=== PATIENT | male | born 1975 | race African-American/Black ===

== ENCOUNTER 2018-12-16 14:27 | Emergency (ER) | payer OTHER ==
[2018-12-16 14:32] VITALS: BP 134/85
[2018-12-16] MEDS ORDERED: TETRACAINE HCL 0.5% OPH SOLN 4 ML OD ONE (14:55)
--- NOTE | 2018-12-16 14:57 | ER Document Report ---
ED Medical Screen (RME) - General Chief Complaint: Foreign Body in Eye Stated Complaint: FOREIGN OJECT IN EYE Time Seen by Provider: 12/16/18 14:52 Mode of Arrival: Ambulatory Information source: Patient TRAVEL OUTSIDE OF THE [place] IN LAST 30 DAYS: No - HPI Patient complains to provider of: left eye injury Notes: 12/16/18 14:56 Patient here with complaints of foreign body in the left eye. The patient works as a air conditioning mechanic industrial. He states he was changing the start her on a car when did fill off the frame into his left eye. He does wear contacts. He was not able to get the contact out of his left eye. Complains of pain, watering, blurred vision from the left eye. No other injury or complaints. Exam No distress, nontoxic-appearing. Left eye with significant injection. Debris noted within the left eye. Photophobia present. No surrounding erythema. Plan Patient was instructed to remove his contact. Visual acuity, tetracaine and eye exam has been ordered. Patient will be seen and evaluated by provider in the back. He may require eye irrigation. An initial examination was made on the patient as part of the triage process, and it was determined a more comprehensive evaluation was necessary. Initial labs were ordered and patient was transferred to another provider in the ED who assumed care and finished evaluation and plan. - Related Data Allergies/Adverse Reactions: Penicillins Allergy (Verified 12/16/18 14:28) tomato Allergy (Verified 12/16/18 14:28) Past Medical History - Social History Chew tobacco use (# tins/day): No Frequency of alcohol use: None Drug Abuse: None Endocrine Medical History: Reports: Hx Diabetes Mellitus Type 2 Renal/ Medical History: Denies: Hx Peritoneal Dialysis Physical Exam - Vital signs Vitals: Temp Pulse Resp BP Pulse Ox 97.8 F 77 16 134/85 H 98 12/16/18 14:30 12/16/18 14:30 12/16/18 14:30 12/16/18 14:30 12/16/18 14:30 Course - Vital Signs Vital signs: Temp Pulse Resp BP Pulse Ox 97.8 F 77 16 134/85 H 98 12/16/18 14:30 12/16/18 14:30 12/16/18 14:30 12/16/18 14:30 12/16/18 14:30
[2018-12-16] MEDS ORDERED: ERYTHROMYCIN 0.5% OPH OINT 1 GM UNIT DOSE OS ONE (16:38)
--- NOTE | 2018-12-16 16:43 | ER Document Report ---
ED Foreign Body - General Chief Complaint: Foreign Body in Eye Stated Complaint: FOREIGN OJECT IN EYE Time Seen by Provider: 12/16/18 14:52 Mode of Arrival: Ambulatory TRAVEL OUTSIDE OF THE [place] IN LAST 30 DAYS: No - HPI Notes: Patient is a 43-year-old male that presents to the emergency department for chief complaint of left eye foreign body. Patient states just prior to arrival he was underneath a car and had direct fall down hitting his eye. He states he has some sharp pain in the medial part of his eye. He is currently wearing contact lenses and has been unable to get his left contact lens out. He states that it is a scratchy sharp pain. He reports increased tearing in the left eye which is making his vision seem blurry. 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 Past Medical History: Diabetes Past Surgical History: Negative Social History: Reviewed in chart Family History: Reviewed and noncontributory for presenting illness Allergies: Reviewed, see documented allergy list. REVIEW OF SYSTEMS: CONSTITUTIONAL : No fever No chills No diaphoresis No recent illness EENT: vision changes left eye pain No congestion No sore throat CARDIOVASCULAR: No chest pain No palpitations RESPIRATORY: No shortness of breath No cough No difficulty breathing GASTROINTESTINAL: No abdominal pain No nausea No vomiting No diarrhea GENITOURINARY: No dysuria No hematuria No difficulty urinating MUSCULOSKELETAL: No back pain No leg pain No arm pain SKIN: No rashes No lesions LYMPHATIC: No swollen, enlarged glands. NEUROLOGICAL: No lightheadedness No headache No weakness No paresthesias PSYCHIATRIC: No anxiety No depression PHYSICAL EXAMINATION: Vital signs reviewed, nursing noted reviewed. GENERAL: Well-appearing, well-nourished and in no acute distress. HEAD: Atraumatic, normocephalic. EYES: PERRLA. Normal right conjunctiva. Left conjunctival injection. Fluorescein uptake on small area and medial left cornea. No corneal ulcer. No Kirsty sign. No foreign bodies with lid inversion ENT: nares patent, oropharynx clear without exudates. Moist mucous membranes. NECK: Normal range of motion, supple without lymphadenopathy LUNGS: Breath sounds clear to auscultation bilaterally and equal. No wheezes rales or rhonchi. HEART: Regular rate and rhythm without murmurs ABDOMEN: Soft, nontender, normoactive bowel sounds. No rebound, guarding, or rigidity. No masses appreciated. EXTREMITIES: Nontender, good range of motion, no pitting or edema. NEUROLOGICAL: No focal neurological deficits. Moves all extremities spontaneously Motor and sensory grossly intact on exam. PSYCH: Normal mood, normal affect. SKIN: Warm, Dry, normal turgor, no rashes or lesions noted on exposed skin - Related Data Allergies/Adverse Reactions: Penicillins Allergy (Verified 12/16/18 14:28) tomato Allergy (Verified 12/16/18 14:28) Past Medical History - General Information source: Patient - Social History Smoking Status: Current Every Day Smoker Chew tobacco use (# tins/day): No Frequency of alcohol use: None Drug Abuse: None Family History: Reviewed & Not Pertinent Patient has suicidal ideation: No Patient has homicidal ideation: No Endocrine Medical History: Reports: Hx Diabetes Mellitus Type 2 Renal/ Medical History: Denies: Hx Peritoneal Dialysis Physical Exam - Vital signs Vitals: Temp Pulse Resp BP Pulse Ox 97.8 F 77 16 134/85 H 98 12/16/18 14:30 12/16/18 14:30 12/16/18 14:30 12/16/18 14:30 12/16/18 14:30 - HEENT Corrective lenses worn: No - Pt couldn't read any lines on chart. Course - Re-evaluation Re-evalutation: 12/16/18 16:41 Vitals reviewed. Nursing notes reviewed. I was able to remove patient's contact lens. Fluorescein was minimally uptake in on the medial aspect of his cornea. Patient will be placed on erythromycin for his corneal abrasion. There was no foreign material retained. There is no sign of globe rupture. Patient was referred to ophthalmology for close follow-up. He was told to not wear contact lenses until resolution of his current abrasion. - Vital Signs Vital signs: Temp Pulse Resp BP Pulse Ox 97.8 F 77 16 134/85 H 98 12/16/18 14:30 12/16/18 14:30 12/16/18 14:30 12/16/18 14:30 12/16/18 14:30 Discharge - Discharge Clinical Impression: Left corneal abrasion Qualifiers: Encounter type: initial encounter Qualified Code(s): S05.02XA - Injury of conjunctiva and corneal abrasion without foreign body, left eye, initial encounter Condition: Stable Disposition: HOME, SELF-CARE Instructions: Corneal Abrasion ([facility]) Additional Instructions: Please return to the emergency department if you have any worsening, or concern of your symptoms. Please return to the emergency department if you develop chest pain, difficulty breathing, severe abdominal pain, or ongoing vomiting. Please follow-up with your primary care physician in 2-3 days and any other rec ommended physicians. If prescribed, take all medications as directed. If you have any questions or concerns do not hesitate to return the emergency department for evaluation. Do not use your contact lenses until okayed by ophthalmology Prescriptions: Erythromycin Base [Erythromycin Oph 1 Gm Oint Ud] 1 applic OS TID 5 Days tube Referrals: KADEN EUCEDA MD [ACTIVE STAFF] - Follow up tomorrow
== END 2018-12-16 16:53 | disposition home or self-care (01) ==
LOC: ER 14:27
DX: S05.02XA Injury of conjunctiva and corneal abrasion without foreign body, left eye, initial encounter (principal); W20.8XXA Other cause of strike by thrown, projected or falling object, initial encounter; Y93.89 Activity, other specified; Y99.0 Civilian activity done for income or pay; F17.200 Nicotine dependence, unspecified, uncomplicated; E11.9 Type 2 diabetes mellitus without complications
CPT/HCPCS: 99283; J3490